=== PATIENT | female | born 2000 | race African-American/Black ===

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

== ENCOUNTER 2018-01-19 16:29 | Emergency (ER) | payer BC, OTHER ==
[~2018-01-19] VITALS: Ht 165.1 cm; Wt 78.4 kg
[~2018-01-19 16:29] MED LIST changes: +PERCOCET 5/31 TABLET PO
[2018-01-19 17:20] LABS: HEMATOCRIT 43.1 % (36.0-46.0); HEMOGLOBIN 14.3 G/DL (11.9-15.5); MCH 28.2 PG (29.0-34.0); MCHC 33.2 G/DL (30.0-36.0); PLATELET COUNT 313 K/uL (156-360); RBC DIS.WIDTH-CV 12.5 % (11.8-14.6); RBC DIS.WIDTH-SD 38.2 % (39-53); RED BLOOD COUNT 5.07 M/uL (3.80-5.20); WHITE BLOOD COUNT 7.6 K/uL (4.1-10.2)
[2018-01-19 17:26] LABS: ALBUMIN 4.8 g/dL (3.2-4.8); CHLORIDE 106 mEq/L (99-109); POTASSIUM 3.9 mEq/L (3.7-5.4); SODIUM 143 mEq/L (136-147)
[2018-01-19 17:29] LABS: GLUCOSE 110 mg/dL (70-99)
[2018-01-19 17:30] LABS: TOTAL BILIRUBIN 0.3 mg/dL (0.0-1.0)
[2018-01-19 17:31] LABS: SERUM ETHYL ALCOHOL < 10 mg/dL
[2018-01-19 17:32] LABS: ALKALINE PHOSPHATASE 74 IU/L (3-129); CREATININE 0.9 mg/dL (0.6-1.3); GFR ESTIMATE (CALCULATED) > 59 mL/min/
[2018-01-19 17:33] LABS: UREA NITROGEN (BUN) 9 mg/dL (9-23)
[2018-01-19 17:34] LABS: AST (GOT) 23 IU/L (2-34)
[2018-01-19 17:35] LABS: ALT (GPT) 14 IU/L (3-49)
[2018-01-19 17:41] LABS: QUANTITATIVE HCG < 4.0 MIU/ML
[2018-01-19 20:48] LABS: APPEARANCE CLEAR ((CLEAR)); BILIRUBIN NEGATIVE; BLOOD NEGATIVE; COLOR YELLOW ((YELLOW)); GLUCOSE (STRIP) NEGATIVE; KETONES NEGATIVE; LEUKOCYTES NEGATIVE; NITRITE NEGATIVE; PROTEIN (STRIP) 100; SPECIFIC GRAVITY 1.024 (1.000-1.030); UROBILINOGEN 0.2 MG/DL (0.2-1.0)
[2018-01-19 20:51] LABS: BACTERIA NONE SEEN /HPF; EPITHELIAL CELLS RARE /HPF; MUCUS 1+ /LPF; RED BLOOD CELLS 0-5 /HPF (0-5); UCUL ADDED? NO; WHITE BLOOD CELLS 0-5 /HPF (0-5)
[2018-01-19] MEDS ORDERED: ZOFRAN ODT4 MG PO (20:57)
[2018-01-19 21:31] VITALS: BP 116/42
== END 2018-01-19 21:32 | disposition home or self-care (01) ==
LOC: EME 16:29 → RME 16:29
DX: R11.2 Nausea with vomiting, unspecified (principal); F10.10 Alcohol abuse, uncomplicated; R10.30 Lower abdominal pain, unspecified; R19.7 Diarrhea, unspecified
CPT/HCPCS: 80053; 81003; 84702; 85027; 99281; 99285; G0480; J2405; J7030